=== PATIENT | male | born 1940 | race Caucasian/White ===

== ENCOUNTER 2017-03-31 21:31 | Emergency (ER) | payer MEDICARE, OTHER ==
[2017-03-31 22:25] VITALS: BP 155/65
[2017-03-31] MEDS ORDERED: Diphtheria,Pertussis(Acell),Tetanus Vaccine 0.5 ML SDV IM ONE (23:16)
--- NOTE | 2017-03-31 23:24 | EDM.PDOC ---
ED HPI GENERAL MEDICAL PROBLEM - General Chief Complaint: Skin Complaint Stated Complaint: R HAND PUNCTURE Time Seen by Provider: 03/31/17 22:45 Source of Information: Reports: Patient History Limitations: Reports: No Limitations - History of Present Illness INITIAL COMMENTS - FREE TEXT/NARRATIVE: History of present illness: [76-year-old male presenting with a laceration to the right hand. He was fishing in several jammed his right hand onto a piece of wood sticking out on a dock. He sustained a laceration to the webspace between the thumb and the first finger the right hand. He denies any numbness or tingling or loss of function denies any pain. He doesn't recall when his last tetanus was and will be giving him a tetanus while here.] Review of systems: As per history of present illness and below otherwise all systems reviewed and negative. Past medical history: As per history of present illness and as reviewed below otherwise noncontributory. Surgical history: As per history of present illness and as reviewed below otherwise noncontributory. Social history: No reported history of drug or alcohol abuse. Family history: As per history of present illness and as reviewed below otherwise noncontributory. Physical exam: HEENT: Atraumatic, normocephalic Lungs: Clear to auscultation Heart: S1S2, regular Extremities: Examination of the right hand reveals a 2; laceration in the webspace between the thumb on the first finger that runs linearly between those 2 points. Neuro: Awake, alert, oriented.Exam nonfocal. Diagnostics: [] Therapeutics: [The area was prepped and draped in usual fashion 1% lidocaine was used for local infiltration The wound was closed with 4-0 Ethilon in a running fashion Before doing so I did examine the wound for any foreign bodies and did explore the wound with my little finger and felt no foreign bodies are warty particles or woody elements and none were seen. Patient tolerated the procedure well] Impression: [2 cm right hand laceration] Plan: [Sutures out in 2 weeks. Tetanus is given. I'm giving him a one-week course of Keflex 500 mg 1 by mouth 4 times a day. His daughter who is with him states that he gets wound infections easily and requested this.] Definitive disposition and diagnosis as appropriate pending reevaluation and review of above. 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) - Related Data Allergies Allergy/AdvReac Type Severity Reaction Status Date / Time No Known Allergies Allergy Verified 03/31/17 22:31 Home Meds: Home Meds Aspirin 81 mg PO DAILY 03/31/17 [History] Fish Oil/Borage/Flax/Om3,6,9#1 [Mcallen 3-6-9 1,200 mg Softgel] 1 caplet PO DAILY 03/31/17 [History] Metoprolol Tartrate 25 mg PO BID 03/31/17 [History] Multivitamin [Multi-Vitamin Daily] 1 tab PO DAILY 03/31/17 [History] atorvaSTATin [Lipitor] 80 mg PO BEDTIME 03/31/17 [History] Past Medical History HEENT History: Reports: Impaired Vision Cardiovascular History: Reports: High Cholesterol, Hypertension Musculoskeletal History: Reports: Other (See Below) Other Musculoskeletal History: left foot drop - Infectious Disease History Infectious Disease History: Reports: Chicken Pox, Measles, Mumps - Past Surgical History Cardiovascular Surgical History: Reports: Coronary Artery Bypass GI Surgical History: Reports: Appendectomy Musculoskeletal Surgical History: Reports: Shoulder Surgery Social & Family History - Tobacco Use Smoking Status *Q: Current Every Day Smoker Years of Tobacco use: 30 Packs/Tins Daily: 1 - Caffeine Use Caffeine Use: Reports: Coffee, Soda - Recreational Drug Use Recreational Drug Use: No ED ROS GENERAL - Review of Systems Review Of Systems: ROS reveals no pertinent complaints other than HPI. ED EXAM, SKIN/RASH Exam: See Below Course - Vital Signs Last Recorded V/S: Last Vital Signs Temp 36.5 C 03/31/17 22:24 Pulse 77 03/31/17 22:24 Resp 18 03/31/17 22:24 BP 155/65 H 03/31/17 22:24 Pulse Ox 94 L 03/31/17 22:24 - Orders/Labs/Meds Orders: Active Orders 24 hr Category Date Time Status Vaccines to be Administered [RC] PER UNIT ROUTINE Care 03/31/17 23:16 Ordered Meds: Medications Discontinued Medications Generic Name Dose Route Start Last Admin Trade Name Freq PRN Reason Stop Dose Admin Diphtheria/Tetanus/Acell Pertussis 0.5 ml 03/31/17 23:16 Adacel IM 03/31/17 23:17 .ONCE ONE Lidocaine HCl 5 ml 03/31/17 22:48 03/31/17 23:02 Xylocaine-Mpf 1% INJECT 03/31/17 22:49 5 ml ONETIME ONE Administration Departure - Departure Time of Disposition: 23:23 Disposition: Home, Self-Care 01 Condition: Good Clinical Impression: Hand laceration Qualifiers: Encounter type: initial encounter Foreign body presence: without foreign body Laterality: right Qualified Code(s): S61.411A - Laceration without foreign body of right hand, initial encounter - Discharge Information Forms: ED Department Discharge Additional Instructions: Please follow-up with your doctor in 2 weeks for suture removal. With the antibiotics it's unlikely that your will get infected but if it does show signs of infection you will need to follow-up sooner. - My Orders Last 24 Hours: My Active Orders 03/31/17 23:16 Vaccines to be Administered [RC] PER UNIT ROUTINE - Assessment/Plan Last 24 Hours: My Active Orders 03/31/17 23:16 Vaccines to be Administered [RC] PER UNIT ROUTINE
== END 2017-03-31 23:33 | disposition home or self-care (01) ==
LOC: JP.ED 21:31
DX: S61.411A Laceration without foreign body of right hand, initial encounter (principal); I10 Essential (primary) hypertension; E78.00 Pure hypercholesterolemia, unspecified; F17.210 Nicotine dependence, cigarettes, uncomplicated; Z98.890 Other specified postprocedural states; Z79.82 Long term (current) use of aspirin; Z95.5 Presence of coronary angioplasty implant and graft; W22.8XXA Striking against or struck by other objects, initial encounter
CPT/HCPCS: 12001; 90471; 90715; 99282-25; 99283-25